=== PATIENT | male | born 1960 | race Caucasian/White ===

== ENCOUNTER → 2021-06-30 | Day surgery (SDC) | payer BC ==
[~2021-06-30] MED LIST: Boostrix 0.5 ML (Tdap) VIAL ONE; Bupivacaine PF 0.5% 30 ML VIAL ONE; CEFAZOLIN 1 GM VIAL ONE; Dexamethasone 20 MG/5 ML VIAL ONE; EPINEPHrine 1 MG/ML AMP ONE; Fentanyl 100 MCG/2 ML VIAL ONE; Glycopyrrolate 0.2 MG/ML 5 ML SYRINGE ONE; HYDROcodone/Acetaminophen 5/325 mg Tablet ONE; Lidocaine 1% PF 5 ML VIAL ONE; Midazolam HCl 2 mg/2 ml Vial ONE; Morphine 4 MG/ML VIAL ONE; Ondansetron PF 4 MG/2 ML Vial ONE; PHENYLEPHRINE-NS 100 MCG/ML 10 ML SYRINGE ONE; PROPOFOL 200 MG/20 ML VIAL ONE
[2021-06-30 19:32] LABS: #Basophils 0.1 thou/uL (0.0-0.2); #Eosinphils 0.5 thou/uL (0.0-0.7); #Lymphocytes 3.5 thou/uL (1.20-3.40); #Monocytes 0.8 thou/uL (0.11-0.59); #Neutrophils 4.9 thou/uL (1.40-6.50); %Basophils 0.9 % (0.0-1.0); %Eosinophils 5.2 % (0.0-10.0); %Lymphocytes 35.9 % (21.0-51.0); %Monocytes 7.7 % (0.0-10.0); %Neutrophils 50.3 % (42.0-75.0); Hemoglobin 15.4 g/dL (14.0-18.0); Mean Corpuscular HGB CONC 34.1 g/dL (32.0-36.0); Mean Corpuscular Hemoglobin 30.8 pg (27.0-31.0); Mean Corpuscular Volume 90.3 fL (78.0-98.0); Mean Platelet Volume 7.6 fL (7.4-10.4); Platelet Count 180 thou/uL (130-400); RBC Distribution Width 11.8 % (11.5-14.5); Red Blood Cell (RBC) Count 5.01 mill/uL (4.70-6.10); White Blood Cell (WBC) Count 9.7 thou/uL (4.8-10.8)
[2021-06-30 19:43] LABS: INR-International Normal Ratio 1.1; PTT 25.6 sec (22.9-36.1); Prothrombin Time 13.9 sec (12.0-14.7)
[2021-06-30 19:54] LABS: ALT (SGPT) 10 U/L (8-55); AST (SGOT) 14 U/L (5-34); Albumin 3.9 g/dL (3.4-4.8); Alkaline Phosphatase 64 U/L (40-110); Anion Gap 13 mmol/L (10-20); BUN (Urea Nitrogen) 23 mg/dL (8.4-25.7); Bilirubin, Total 0.8 mg/dL (0.2-1.2); Calc. Creatinine Clearance 0 mL/min (70-130); Calcium 8.9 mg/dL (7.8-10.44); Carbon Dioxide 22 mmol/L (23-31); Chloride 106 mmol/L (98-107); Globulin 2.4 g/dL (2.4-3.5); Glucose 109 mg/dL (80-115); Potassium 3.9 mmol/L (3.5-5.1); Protein, Total 6.3 g/dL (5.8-8.1); Sodium 137 mmol/L (136-145)
[2021-06-30 21:33] LABS: SARS-CoV-2 NAA Rapid Test DETECTED (NotDetected)
== END ==
LOC: ERS 18:57 → SDC/OP 23:00
PROVIDERS: ATTEND Orthopaedic Surgery
PROC: 0KBQ0ZZ Excision of Right Upper Leg Muscle, Open Approach (ICD-10-PCS; principal; 2021-06-30)
DX: U07.1 COVID-19 (principal); S71.111A Laceration without foreign body, right thigh, initial encounter; Z91.010 Allergy to peanuts; Z91.013 Allergy to seafood; W31.89XA Contact with other specified machinery, initial encounter
CPT/HCPCS: 36415; 71045; 75635; 80053; 85025; 85610; 85730; 86850; 86900; 86901; 90471; 90715; 93005; 96365; 96375; G0390; J0171; J0690; J1100; J2250; J2270; J2405; J2704; J3010; S0020; U0002

== ENCOUNTER 2021-11-19 23:00 | Emergency (ER) | payer BC | END 2021-11-20 00:03 | disposition home or self-care (01) | LOC: ERS 23:00 | DX: H43.11 Vitreous hemorrhage, right eye (principal); I10 Essential (primary) hypertension | CPT/HCPCS: 99283 ==

== ENCOUNTER 2023-04-20 08:57 | Day surgery (SDC) | payer BC ==
[2023-04-19 10:06] VITALS: BMI 32.3
[2023-04-20 12:01] LABS: Anion Gap 14 mmol/L (10-20); BUN (Urea Nitrogen) 15 mg/dL (8.4-25.7); Calc. Creatinine Clearance 126 mL/min (70-130); Calcium 9.5 mg/dL (7.8-10.44); Carbon Dioxide 24 mmol/L (23-31); Chloride 107 mmol/L (98-107); Estimated GFR 91; Glucose 93 mg/dL (80-115); Potassium 4.5 mmol/L (3.5-5.1); Sodium 140 mmol/L (136-145)
[2023-04-20] MEDS ORDERED: Famotidine/PF 20 mg/2ml Vial ONE (12:09)
[2023-04-20] MEDS ORDERED: fentaNYL 50 mcg/mL 1 mL Vial ONE ×3 (12:09→16:30)
[2023-04-20] MEDS ORDERED: Bupivacaine 0.25% HCL 30 ML VIAL ONE (12:13)
[2023-04-20] MEDS ORDERED: Methylene Blue 50 MG/10 ML AMPUL ONE (12:13)
[2023-04-20] MEDS ORDERED: Bacitracin Zinc Ointment 30 gm TUBE ONE ×2 (12:13→14:20)
[2023-04-20] MEDS ORDERED: EPINEPHrine 1 MG/ML AMP ONE (12:13)
[2023-04-20] MEDS ORDERED: Isosulfan Blue 50 MG/5 ML VIAL ONE (12:14)
[2023-04-20] MEDS ORDERED: Dexmedetomidine 200 MCG/2 ML VIAL ONE (12:32)
[2023-04-20] MEDS ORDERED: Sodium Chloride 0.9% 100 ML ONE (13:01)
[2023-04-20] MEDS ORDERED: CEFAZOLIN 2 GM VIAL ONE (13:01)
[2023-04-20] MEDS ORDERED: Ketorolac Tromethamine 30 MG/ML VIAL ONE (13:18)
[2023-04-20] MEDS ORDERED: Dexamethasone 20 MG/5 ML VIAL ONE (13:18)
[2023-04-20] MEDS ORDERED: Ondansetron PF 4 MG/2 ML Vial ONE (13:18)
[2023-04-20] MEDS ORDERED: Metoclopramide HCl 10 MG/2 ML VIAL ONE (13:18)
[2023-04-20] MEDS ORDERED: PROPOFOL 200 MG/20 ML VIAL ONE (13:18)
[2023-04-20] MEDS ORDERED: Lidocaine 1% PF 5 ML VIAL ONE (13:18)
[2023-04-20] MEDS ORDERED: PHENYLEPHRINE-NS 100 MCG/ML 10 ML SYRINGE ONE (13:18)
[2023-04-20] MEDS ORDERED: Mineral Oil Sterile 10 ML VIAL ONE (13:31)
== END 2023-04-20 17:35 | disposition home or self-care (01) ==
LOC: NM 08:57
PROVIDERS: ATTEND Plastic Surgery
PROC: 0HREX73 Replacement of Left Lower Arm Skin with Autologous Tissue Substitute, Full Thickness, External Approach (ICD-10-PCS; principal; 2023-04-20)
PROC: 0JBF0ZZ Excision of Left Upper Arm Subcutaneous Tissue and Fascia, Open Approach (ICD-10-PCS; principal; 2023-04-20)
PROC: 07B40ZX Excision of Left Upper Extremity Lymphatic, Open Approach, Diagnostic (ICD-10-PCS; principal; 2023-04-20)
PROC: 07B60ZX Excision of Left Axillary Lymphatic, Open Approach, Diagnostic (ICD-10-PCS; principal; 2023-04-20)
DX: C44.699 Other specified malignant neoplasm of skin of left upper limb, including shoulder (principal); D36.0 Benign neoplasm of lymph nodes
CPT/HCPCS: 78195; 80048; 88305; 88307; 88331; 88332; A9541; C1713; J0171; J1100; J1885; J2405; J2704; J2765; J3010; J3490; Q9968; S0020; S0028

== ENCOUNTER 2024-08-05 10:52 | Outpatient (CLI) | payer BC | END 2024-08-05 10:53 | disposition home or self-care (01) | LOC: SCSMRI 10:52 | PROVIDERS: ATTEND Psychiatry & Neurology Neurology | DX: M48.02 Spinal stenosis, cervical region (principal); M50.31 Other cervical disc degeneration, high cervical region; M50.321 Other cervical disc degeneration at C4-C5 level; M50.322 Other cervical disc degeneration at C5-C6 level; M50.323 Other cervical disc degeneration at C6-C7 level; M50.223 Other cervical disc displacement at C6-C7 level | CPT/HCPCS: 72156 ==